=== PATIENT | female | born 1975 | race Caucasian/White ===

== ENCOUNTER 2023-02-10 13:34 | Day surgery (SDC) | payer BC, OTHER ==
[~2023-02-10] VITALS: Ht 170.2 cm; Wt 101.0 kg
[~2023-02-10 13:34] MED LIST: CETI10 PO; CHOL10002 PO; LYBREL PO; METO50ER PO; OMEP20ER PO; TRIHYD253B PO
[2023-02-10] MEDS ORDERED: LOSA25 (14:37)
[2023-02-10] MEDS ORDERED: METF500 (14:37)
[2023-02-10] MEDS ORDERED: CHLO25B (14:37)
[2023-02-10] MEDS ORDERED: POTA8 (14:37)
--- NOTE | 2023-02-10 15:07 | NUR ---
02/10/23 1507 Shayla Collier THREE ATEEMPTS AT IV. FIRST ATTEMPT AT IV BY MA IN RIGHT HAND MINFILTREATED. SECOND ATTEMPT AT IV BY RN IN RIGHT AC MISSED. THIRD ATTEMPT AT IV BY RN IN LEFT HAND SUCCESSFUL.
[2023-02-10 17:19] VITALS: BP 112/89
== END 2023-02-10 17:15 | disposition home or self-care (01) ==
LOC: ORSCSDS 13:34
PROVIDERS: Internal Medicine Gastroenterology
PROC: 0DB78ZX Excision of Stomach, Pylorus, Via Natural or Artificial Opening Endoscopic, Diagnostic (ICD-10-PCS; principal; 2023-02-10 15:00)
DX: K21.9 Gastro-esophageal reflux disease without esophagitis (principal); K31.7 Polyp of stomach and duodenum; I10 Essential (primary) hypertension; E11.9 Type 2 diabetes mellitus without complications; G47.33 Obstructive sleep apnea (adult) (pediatric); Z79.84 Long term (current) use of oral hypoglycemic drugs; Z79.899 Other long term (current) drug therapy; E66.9 Obesity, unspecified; Z68.34 Body mass index [BMI] 34.0-34.9, adult
CPT/HCPCS: 88305; J0461; J2001; J2250; J2405; J2704; J7120

== ENCOUNTER 2023-05-18 15:01 | Emergency (ER) | payer BC ==
[~2023-05-18] VITALS: Ht 170.2 cm; Wt 99.8 kg
[~2023-05-18 15:01] MED LIST changes: +CHLO25B; +LOSA25; +METF500; +POTA8
[2023-05-18 15:10] VITALS: BP 143/65
[2023-05-18] MEDS ORDERED: Norco 5-325 Ta1 EACH PO (17:26)
[2023-05-18] MEDS ORDERED: CEPH500 PO (17:26)
== END 2023-05-18 17:40 | disposition home or self-care (01) ==
LOC: ER 15:01
DX: S62.521B Displaced fracture of distal phalanx of right thumb, initial encounter for open fracture (principal); W23.0XXA Caught, crushed, jammed, or pinched between moving objects, initial encounter; Z88.8 Allergy status to other drugs, medicaments and biological substances; Z79.899 Other long term (current) drug therapy
CPT/HCPCS: 73140; 96365; 99284-25; A9270; J0690

== ENCOUNTER → 2025-02-19 | Outpatient (CLI) | payer BC ==
[~2025-02-19] MED LIST changes: +CEPH500 PO; +Norco 5-325 Ta1 EACH PO
[2025-02-24 07:31] LABS: CORTISOL,SALIVA 0.051 ug/dL
[2025-02-24 07:31] LABS: CORTISOL,SALIVA 0.063 ug/dL
[2025-02-24 07:31] LABS: CORTISOL,SALIVA 0.188 ug/dL
[2025-02-24 23:45] LABS: CORTISOL,SALIVA <0.025 ug/dL
== END ==
LOC: LAB SHORT 20:00 → LAB 20:00
PROVIDERS: Physician Assistant Surgical
DX: Z00.00 Encounter for general adult medical examination without abnormal findings (principal); F43.0 Acute stress reaction; G57.60 Lesion of plantar nerve, unspecified lower limb; Z79.1 Long term (current) use of non-steroidal anti-inflammatories (NSAID)
CPT/HCPCS: 82533

== ENCOUNTER → 2025-08-12 | Outpatient (CLI) | payer BC | LOC: LAB 11:30 → LAB SHORT 11:30 | PROVIDERS: Family Medicine | DX: Z12.4 Encounter for screening for malignant neoplasm of cervix (principal) | CPT/HCPCS: 87624; G0123 ==